=== PATIENT | male | born 1970 | race Caucasian/White ===

== ENCOUNTER 2023-10-02 10:30 | Observation (INO) | payer OTHER ==
[2023-10-02] MEDS: FAMOTIDINE 20 MG/50 ML IVPB 20 MG/50 ML MG IVPB ONE (11:10)
[2023-10-02] MEDS: ACETAMINOPHEN 1000 MG/100 ML BAG IVPB ONE (11:15)
[2023-10-02] MEDS: SODIUM CHLORIDE 1,000 ML IV STA (11:40)
[2023-10-02] MEDS ORDERED: ACETAMINOPHEN INJECTION 100 ML ONE (11:56)
[2023-10-02] MEDS ORDERED: FAMOTIDINE 20 MG/50 ML IVPB 20 MG/50 ML MG IVPB ONE (11:56)
[2023-10-02 12:50] LABS: HEMATOCRIT 47.2 % (35.4-49); HEMOGLOBIN 15.7 GM/dL (11.7-16.9); MCH 29.9 pg (25.7-33.7); MCHC 33.4 g/dl (32.0-35.9); MEAN CELL VOLUME 89.5 fl (80-96); MEAN PLT VOLUME 8.1 fl (7.5-11.1); PLATELET COUNT 468 10^3/uL (134-434); RBC 5.27 M/mm3 (4.00-5.60); RDW 13.8 % (11.9-15.9); WHITE BLOOD COUNT 15.1 K/mm3 (4.0-10.0)
[2023-10-02 12:53] LABS: PROTHROMBIN TIME (PATIENT) 11.5 SEC (9.7-13.0)
[2023-10-02 12:56] LABS: ACTIVATED PTT 32.2 SECONDS (25.2-36.5)
[2023-10-02 13:00] LABS: EPI CELLS 5 /uL (0-25.1); HYALINE CASTS 0 /uL (0-3.1); PH,URINE 8.5 (5.0-8.0); URINE APPEARANCE CLOUDY; URINE BACTERIA 11 /uL (0-1359); URINE BILIRUBIN NEGATIVE (NEGATIVE); URINE COLOR DK YELLOW; URINE GLUCOSE (UA) NEGATIVE (NEGATIVE); URINE KETONE 2+ (NEGATIVE); URINE LEUK ESTERASE NEGATIVE (NEGATIVE); URINE NITRITE NEGATIVE (NEGATIVE); URINE PROTEIN 2+ (NEGATIVE); URINE RBC 27 /uL (0-23.9); URINE WBC 4 /uL (0-25.8)
[2023-10-02 13:06] LABS: POTASSIUM 4.1 mmol/L (3.5-5.1)
[2023-10-02 13:10] LABS: ALBUMIN 4.8 g/dl (3.4-5.0); BLOOD UREA NITROGEN 13.3 mg/dL (7-18); CALCIUM 10.1 mg/dL (8.5-10.1)
[2023-10-02 13:13] LABS: CREATININE 1.1 mg/dL (0.55-1.3)
[2023-10-02 13:15] LABS: BILIRUBIN,TOTAL 0.8 mg/dL (0.2-1); TOT PROT 8.4 g/dl (6.4-8.2)
[2023-10-02 13:24] LABS: ANISOCYTOSIS 0; MACROCYTOSIS 0
[2023-10-02 14:02] LABS: HIV INTERPRETATION NEGATIVE (NEGATIVE)
[2023-10-02] MEDS ORDERED: ACETAMINOPHEN 1000 MG/100 ML BAG IVPB PRN (17:30)
[2023-10-02] MEDS: DEXTROSE 5%-LACTATED RINGERS 1,000 ML IV SCH (18:37)
[2023-10-02] MEDS: IOHEXOL (OMNIPAQUE PO) 12 MG/ML - 500 ML BOTTLE PO ONE (21:14)
[2023-10-03] MEDS: ZOLPIDEM TARTRATE 5 MG TABLET PO PRN (02:13)
[2023-10-03 03:00] VITALS: BMI 34.4
[2023-10-03 08:24] LABS: POTASSIUM 4.1 mmol/L (3.5-5.1)
[2023-10-03 08:30] LABS: BASO % 0.3 % (0-2.0); BLOOD UREA NITROGEN 10.6 mg/dL (7-18); CALCIUM 8.6 mg/dL (8.5-10.1); EOS % 5.5 % (0-4.5); HEMATOCRIT 38.4 % (35.4-49); HEMOGLOBIN 12.9 GM/dL (11.7-16.9); LYMPH % 34.6 % (8-40); MCH 30.4 pg (25.7-33.7); MCHC 33.7 g/dl (32.0-35.9); MEAN CELL VOLUME 90.4 fl (80-96); MONO % 12.8 % (3.8-10.2); NEUT % 46.8 % (42.8-82.8); PLATELET COUNT 333 10^3/uL (134-434); RBC 4.25 M/mm3 (4.00-5.60); RDW 13.8 % (11.9-15.9); WHITE BLOOD COUNT 6.5 K/mm3 (4.0-10.0)
[2023-10-04] MEDS: LISINOPRIL 20 MG TABLET PO SCH (09:25)
[2023-10-04] MEDS: ESCITALOPRAM OXALATE 10 MG TABLET PO SCH (09:25)
[2023-10-04 10:28] LABS: BASO % 0.6 % (0-2.0); EOS % 6.2 % (0-4.5); HEMATOCRIT 38.8 % (35.4-49); HEMOGLOBIN 13.1 GM/dL (11.7-16.9); LYMPH % 35.3 % (8-40); MCH 30.2 pg (25.7-33.7); MCHC 33.8 g/dl (32.0-35.9); MEAN CELL VOLUME 89.5 fl (80-96); MEAN PLT VOLUME 8.2 fl (7.5-11.1); MONO % 10.6 % (3.8-10.2); NEUT % 47.3 % (42.8-82.8); PLATELET COUNT 359 10^3/uL (134-434); RBC 4.34 M/mm3 (4.00-5.60); RDW 13.5 % (11.9-15.9); WHITE BLOOD COUNT 5.6 K/mm3 (4.0-10.0)
[2023-10-04 10:42] LABS: POTASSIUM 4.1 mmol/L (3.5-5.1)
[2023-10-04 10:55] LABS: CALCIUM 8.9 mg/dL (8.5-10.1)
[2023-10-04 10:56] LABS: ALBUMIN 3.9 g/dl (3.4-5.0); BLOOD UREA NITROGEN 8.3 mg/dL (7-18); MAGNESIUM 2.4 mg/dL (1.8-2.4)
[2023-10-04 10:59] LABS: CREATININE 0.8 mg/dL (0.55-1.3)
[2023-10-04 11:00] LABS: BILIRUBIN,TOTAL 0.6 mg/dL (0.2-1); TOT PROT 6.5 g/dl (6.4-8.2)
[2023-10-04 14:32] VITALS: BP 116/77; PULSE 97; RESP 18; TEMP 98.9
== END 2023-10-04 14:43 | disposition home or self-care (01) ==
LOC: JER 10:30 → INTOOBSV 16:23 → JERBED 16:23 → J8W 23:41
PROVIDERS: ADMIT Internal Medicine; ATTEND Nurse Practitioner Family
PROC: 3E033NZ Introduction of Analgesics, Hypnotics, Sedatives into Peripheral Vein, Percutaneous Approach (ICD-10-PCS; principal; 2023-10-02)
PROC: 3E033GC Introduction of Other Therapeutic Substance into Peripheral Vein, Percutaneous Approach (ICD-10-PCS; 2023-10-02)
PROC: 3E0337Z Introduction of Electrolytic and Water Balance Substance into Peripheral Vein, Percutaneous Approach (ICD-10-PCS; 2023-10-02)
DX: K52.9 Noninfective gastroenteritis and colitis, unspecified (principal); Z29.9 Encounter for prophylactic measures, unspecified; I10 Essential (primary) hypertension; F41.8 Other specified anxiety disorders; E66.9 Obesity, unspecified; Z88.0 Allergy status to penicillin
CPT/HCPCS: 0241U-QW; 36415; 71046-TC-FY; 74018-TC-FY; 74177-TC; 80048; 80053; 81003; 83690; 83735; 84484; 85025; 85610; 85730; 86803; 86850; 86900; 86901; 87086; 87389; 93005; 93010; 99285-25; G0378; J0131; Q9967